=== PATIENT | female | born 1995 | race Caucasian/White ===

== ENCOUNTER → 2016-11-01 | Outpatient (CLI) | payer MEDICAID ==
[~2016-11-01] MED LIST: IBP800T PO
--- OUTSIDE RECORDS SUMMARY | 2016-11-01 16:24 | XMS REPORT | Continuity of Care Document ---
Author Author Interface Organization Interface Address Unknown Phone Unavailable Problems Problem Status Onset Date Classification Date Reported Comments Source No data available for this section Problem 03/02/2015 [place]. state, incidental 02/26/2015 Diagnosis 2014 [facility] Medications Medication Details Route Status Patient Instructions Ordering Provider Order Date Source No Known Medications No known medications Active [facility] Allergies, Adverse Reactions, Alerts Substance Category Reaction Severity Reaction type Status Date Reported Comments Source Immunizations Immunization Date Given Site Status Last Updated Comments Source No data available for this section No data available for this section [place]. Results Order Name Results Value Reference Range Date Interpretation Comments Source Vital Signs Vital Sign Value Date Comments Source Encounters Location Location Details Encounter Type Encounter Number Reason For Visit Attending Provider ADM Date DC Date Status Source [facility] [id number] Clinic ( Outpatient) [id number] [place] 02/26/2015 Active [facility] [id number] [place] 02/26/2015 02/27/2015 [place] Procedures Procedure Code Date Perfomer Comments Source No data available for this section [facility]
--- NOTE | 2016-11-01 18:44 | Diagnostic Imaging Report ---
INDICATION: Ultrasound for dates. FINDINGS: There is a single live intrauterine fetus. [place]-rump length is 5.3 cm consistent with 12 week 0 day gestation. heart rate of 149 beats per minute. Placenta appears to be developing fundally and posteriorly. No evidence of subchorionic hemorrhage. IMPRESSION: 12 week 0 day live intrauterine with sonographic EDC of 05/16/2017. Dictated by: Dictated on workstation # [id number]
== END ==
LOC: RAD 16:20
PROVIDERS: ATTEND Family Medicine
DX: Z34.81 Encounter for supervision of other normal pregnancy, first trimester (principal)
CPT/HCPCS: 76801

== ENCOUNTER → 2016-12-28 | Outpatient (CLI) | payer MEDICAID ==
--- OUTSIDE RECORDS SUMMARY | 2016-12-28 11:15 | XMS REPORT | Continuity of Care Document ---
Author Author Zaida Cerda Address Unknown Phone Unavailable Care Team Providers Care Senior Communications Specialist Name Role Phone [employer] Unavailable Unavailable Problems Problem Status Onset Date Classification Date Reported Comments Source state, incidental 02/26/2015 Diagnosis 2014 [facility] No data available for this section Problem 03/02/2015 [employer]. Medications Medication Details Route Status Patient Instructions Ordering Provider Order Date Source No Known Medications No known medications Active [employer]. Allergies, Adverse Reactions, Alerts Immunizations Immunization Date Given Site Status Last Updated Comments Source No data available for this section No data available for this section [employer]. Results Vital Signs Encounters Location Location Details Encounter Type Encounter Number Reason For Visit Attending Provider ADM Date DC Date Status Source [facility] [id number] [employer] 02/26/2015 02/27/2015 [facility] Procedures Procedure Code Date Perfomer Comments Source No data available for this section [employer]. Plan of Care Social History Assessment and Plan Family History Value Date Source Advance Directives Order Name Results Value Date Source
--- NOTE | 2016-12-28 12:39 | Diagnostic Imaging Report ---
INDICATION: Anatomical survey. COMPARISON: 11/01/2016. DISCUSSION: Transabdominal sonographic evaluation of the gravid uterus was performed. The cervix measures 4.7 cm. Single live intrauterine at 20 weeks 1 day by sonographic measurements. Appropriate interval growth. EDC by the first ultrasound is 05/16/2017. presentation varied throughout the exam. Normal amniotic fluid index. Grade 2 placenta is located posteriorly with no placenta previa. heart rate measures 155 beats per minute. There is good visualization of the kidneys, bladder, stomach, brain, four-chamber heart, three-vessel cord and insertion, spine, and extremities. Biparietal diameter measures 4.6 cm. Head circumference measures 17.3 cm. Abdominal circumference measures 15.2 cm. Femur length measures 3.3 cm. Estimated weight is 342 g. IMPRESSION: 1. Single live intrauterine at 20 weeks 1 day by sonographic measurements. Normal anatomical survey. Dictated by: Dictated on workstation # [id number]
== END ==
LOC: RAD 11:11
PROVIDERS: ATTEND Family Medicine
DX: Z34.82 Encounter for supervision of other normal pregnancy, second trimester (principal)
CPT/HCPCS: 76805

== ENCOUNTER 2017-05-04 14:00 | Inpatient (IN) | payer MEDICAID ==
[~2017-05-04] VITALS: Ht 170.2 cm; Wt 85.3 kg
[2017-05-04] VITALS (38 sets, daily range): BP systolic 90–134; BP diastolic 51–75
[2017-05-04] MEDS ORDERED: PREN1TAB86 PO (14:53)
[2017-05-04 14:54] LABS: BILIRUBIN,URINE NEGATIVE (NEGATIVE); KETONES,URINE NEGATIVE (NEGATIVE); LEUKOCYTE ESTERASE ,URINE 3+ (NEGATIVE); NITRITE,URINE NEGATIVE (NEGATIVE); PH,URINE 6 (5-9); PROTEIN,URINE 2+ (NEGATIVE); UROBILINOGEN,URINE 1 MG/DL (NORMAL)
[2017-05-04] MEDS ORDERED: D5 LR IV SOLUTION 1,000 ML IV ONE (15:03)
[2017-05-04] MEDS ORDERED: MINERAL OIL CONCENTRATE 99.9% 15 ML UDC TOP PRN (15:15)
[2017-05-04] MEDS: D5 LR IV SOLUTION 1,000 ML IV SCH ×2 (15:20→22:52)
[2017-05-04 15:27] LABS: WBC,URINE 25-50 /HPF
[2017-05-04 15:28] LABS: TRICHOMONAS,URINE FEW /HPF
[2017-05-04 15:38] LABS: BASOPHILS % (AUTO) 0 % (0-10); EOSINOPHILS # (AUTO) 0.1 10^3/uL (0.0-0.3); EOSINOPHILS % (AUTO) 1 % (0-10); LYMPHOCYTES # (AUTO) 2.3 X 10^3 (1.0-4.0); LYMPHOCYTES % (AUTO) 20 % (12-44); MEAN CORPUSCULAR HEMOGLOBIN 30 PG (25-34); MEAN CORPUSCULAR HGB CONC 33 G/DL (32-36); MEAN CORPUSCULAR VOLUME 89 FL (80-99); MONOCYTES % (AUTO) 8 % (0-12); NEUTROPHILS # (AUTO) 8.6 X 10^3 (1.8-7.8); NEUTROPHILS % (AUTO) 72 % (42-75); PLATELET COUNT 236 10^3/uL (130-400); RED CELL DISTRIBUTION WIDTH 14.1 % (10.0-14.5)
[2017-05-04] MEDS ORDERED: metroNIDAZOLE 500 MG (FLAGYL) TAB PO NR (16:40)
[2017-05-04] MEDS ORDERED: SUFENTA 0.6MCG/ML BUPIVA 0.125 100 ML ONE (19:10)
[2017-05-04] MEDS ORDERED: BUPIVACAINE 0.25% 30 ML (SENSORCAINE) VIAL ONE (19:35)
[2017-05-04] MEDS: EPIDURAL (SUFENTA 0.6MCG/ML BUPIVA 0.125%) 100 ML BAG EPI SCH (19:55)
[2017-05-04] MEDS ORDERED: LACTATED RINGERS 1,000 ML IV ONE (20:00)
[2017-05-04] MEDS ORDERED: ONDANSETRON 4 MG/2 ML (SDV) Z0FRAN IV PRN (20:00)
[2017-05-04] MEDS ORDERED: NALOXONE 0.4 MG/ML 1 ML (NARCAN) VIAL IV PRN (20:00)
[2017-05-04] MEDS: CATHETER FLUSH 10 ML SYR IV SCH (22:00)
[2017-05-05] VITALS (67 sets, daily range): BP systolic 91–127; BP diastolic 6–70
[2017-05-05] MEDS: ACETAMINOPHEN 500 MG TAB (TYLENOL) PO PRN ×2 (04:12→14:55)
[2017-05-05] MEDS ORDERED: OXYTOCIN/NORMAL SALINE 500 ML IV ONE ×2 (05:16→14:19)
[2017-05-05] MEDS: EPIDURAL (SUFENTA 0.6MCG/ML BUPIVA 0.125%) 100 ML BAG EPI SCH (05:34)
[2017-05-05] MEDS: CATHETER FLUSH 10 ML SYR IV SCH (06:00)
[2017-05-05] MEDS: D5 LR IV SOLUTION 1,000 ML IV SCH (07:01)
--- NOTE | 2017-05-05 08:15 | History & Physical-OB ---
OB - Chief Complaint & HPI Date/Time Date of Admission: Date of Admission: May 04, 2017 at 3:14 pm Time Seen by Provider: 08:10 Chief Complaint/History OB-Reason for Admission/Chief: Onset of Labor Hx : 2 Hx Para: 1 Expected Date of Delivery: May 15, 2017 Gestational Age in Weeks: 38 Gestational Age in Days: 4 Admission Nurse Assessment Rev: Yes History of Labs O+, antibody neg, RI, HIV/HepB/RPR NR. GC neg. Chlamydia positive and treated twice, ANCA negative. Trichomonas in urine at admission. GBS neg. Allergies and Home Medications Allergies Coded Allergies: No Known Drug Allergies (Unverified , 10/27/12) Home Medications Vit W-Ca,Fe,FA(<1 mg) 1 Each Tablet, 1 EACH PO DAILY, (Reported) OB - History Hx of Present Care: Yes Ultrasounds: Normal mid trimester US Obstetrical Complications: Other (chlamydia) Medical Complications: None Obstetrical History Hx : 2 Hx Para: 1 Hx # Term Pregnancies: 1 Hx # Pregnancies: 0 Number of Living Children: 1 Hx Termination: No Hx Multiple Gestation: No Hx Ectopic : No Hx Stillbirth: No Hx Complication: No Hx Induced Hypertens: Yes Hx Maternal Gestational Diabet: No Hx Hemorrhage: No Delivery History Hx Dystocia: No Hx Forceps Assisted Delivery: No Hx Vacuum Extraction Assisted: No Hx Placenta Abnormality: No Hx Distress: No Hx Large For Gestational Age I: No Hx Small for Gestational Age I: No Hx Section: No Hx Vaginal Delivery Post C-Sec: No Hx Blood Disorders: No Adverse Rxn to Tranfusion: No Patient Past Medical History PMHx: None Social History/Family History HIV/AIDS: No Recent Infectious Disease Expo: No Sexually Transmitted Disease: Yes Alcohol Use: Denies Use Recreational Drug Use: No (urine positive for THC at intake visit) Smoking Cessation: Current every day smoker Immunizations Hepatitis A: Yes Hepatitis B: Yes Rubella: immune RPR/VDRL: Negative GBS Status: Negative HBsAG: Negative OB - Admission Exam Physical Exam Date Seen by Provider: May 05, 2017 Time Seen by Provider: 08:16 Vitals: Vital Signs 05/05/17 05/05/17 05:45 07:00 Temp 97.1 Pulse 73 Resp 18 B/P (MAP) 106/58 Pulse Ox 98 O2 Delivery Room Air HEENT: NCAT Abdomen: Non tender Extremities: Normal Cervical Dilatation: 7cm Effacement: 75% Station: -3 Membranes: Intact Heart Rate: 140's Decelerations: No Decelerations Fdc Variability: Average (6-25) Labs Laboratory Tests Test 05/04/17 14:17 05/04/17 15:20 Range/Units Urine Color YELLOW Urine Clarity CLEAR Urine pH 6 5-9 Urine Specific [place] 1.020 1.016-1.022 Urine Protein 2+ H NEGATIVE Urine Glucose (UA) NEGATIVE NEGATIVE Urine Ketones NEGATIVE NEGATIVE Urine Nitrite NEGATIVE NEGATIVE Urine Bilirubin NEGATIVE NEGATIVE Urine Urobilinogen 1 NORMAL MG/DL Urine Leukocyte Esterase 3+ H NEGATIVE Urine RBC (Auto) 1+ H NEGATIVE Urine RBC 2-5 H /HPF Urine WBC 25-50 H /HPF Urine Squamous Epithelial Cells 10-25 H /HPF Urine Crystals NONE /LPF Urine Bacteria FEW H /HPF Urine Casts NONE /LPF Urine Mucus MODERATE H /LPF Urine Trichomonas FEW H /HPF Urine Culture Indicated YES Urine Opiates Screen NEGATIVE NEGATIVE Urine Oxycodone Screen NEGATIVE NEGATIVE Urine Methadone Screen NEGATIVE NEGATIVE Urine Propoxyphene Screen NEGATIVE NEGATIVE Urine Barbiturates Screen NEGATIVE NEGATIVE Ur Tricyclic Antidepressants Screen NEGATIVE NEGATIVE Urine Phencyclidine Screen NEGATIVE NEGATIVE Urine Amphetamines Screen NEGATIVE NEGATIVE Urine Methamphetamines Screen NEGATIVE NEGATIVE Urine Benzodiazepines Screen NEGATIVE NEGATIVE Urine Cocaine Screen NEGATIVE NEGATIVE Urine Cannabinoids Screen NEGATIVE NEGATIVE White Blood Count 12.0 H 4.3-11.0 10^3/uL Red Blood Count 3.90 L 4.35-5.85 10^6/uL Hemoglobin 11.5 11.5-16.0 G/DL Hematocrit 35 35-52 % Mean Corpuscular Volume 89 80-99 FL Mean Corpuscular Hemoglobin 30 25-34 PG Mean Corpuscular Hemoglobin Concent 33 32-36 G/DL Red Cell Distribution Width 14.1 10.0-14.5 % Platelet Count 236 130-400 10^3/uL Mean Platelet Volume 11.0 H 7.4-10.4 FL Neutrophils (%) (Auto) 72 42-75 % Lymphocytes (%) (Auto) 20 12-44 % Monocytes (%) (Auto) 8 0-12 % Eosinophils (%) (Auto) 1 0-10 % Basophils (%) (Auto) 0 0-10 % Neutrophils # (Auto) 8.6 H 1.8-7.8 X 10^3 Lymphocytes # (Auto) 2.3 1.0-4.0 X 10^3 Monocytes # (Auto) 1.0 0.0-1.0 X 10^3 Eosinophils # (Auto) 0.1 0.0-0.3 10^3/uL Basophils # (Auto) 0.0 0.0-0.1 10^3/uL OB - Assessment/Plan/Diagnosis Assessment Assessment: active labor, other (trichomoniasis) Plan Plan: Expectant Management Copy Copies To 1: MARICARMEN MEYERS MD, BETHANY N MD May 05, 2017 8:15 am
--- NOTE | 2017-05-05 14:37 | OB Labor & Delivery Record ---
Vag Delivery Note Vag Delivery Note Date of Delivery: 05/05/17 Preoperative Diagnosis: Renetta Lara is a (21 /Para 2 / 1, Gestational Age (wks)38with 4 days Postoperative Diagnosis: Same Surgeon: MARICARMEN MEYERS Supervisor [employer]: Peggy Hand, MS3 Anesthesia: Epidural Delivery Type: spontaneous vaginal Findings: Viable female infant, apgars 4/8, weight 7#1 Lacerations: none Intact placenta with 3 vessel cord. Estimated Blood Loss: 250 ml Complications: Nuchal x 1 delivered through, mild shoulder dystocia relieved with suprapubic pressure Condition: Stable Description of Procedure: The patient is a G2 now P2 who presented at 38w3d with suspected active labor. She was admitted and informed consent was obtained. She was noted to have trichomonas in urine at admission, was treated with metronidazole. Her labor course was remarkable for arrhythmia. She progressed to complete dilatation and began to push. She was then set up for delivery. The infant's head was delivered atraumatically in the JUS position. Shoulder dystocia noted upon delivery which was not relieved with McRobert's position but was relieved with suprapubic pressure in less than one minute. Upon delivery, the infant was placed on maternal abdomen and the mouth and nares were bulb suctioned. The cord was doubly clamped and cut and the infant was handed off to the pediatric staff. An intact placenta with 3-vessel cord delivered via Marcus and there was found to be minimal bleeding.~ Vigorous fundal massage was performed and the fundus was found to be firm. IV oxytocin was given. Examination of the vagina and perineum revealed no lacerations. Sponge, instrument and needle counts were correct. Mom in stable condition in labor suite, transferred to nursery for further evaluation and monitoring. Vitals - Labs Vital Signs - I&O Vital Signs 05/05/17 05/05/17 10:08 11:45 Temp 96.6 Pulse 157 Resp 18 B/P (MAP) 117/54 Pulse Ox 94 O2 Delivery Room Air Labs Laboratory Tests 05/04/17 15:20: White Blood Count 12.0H, Red Blood Count 3.90L, Hemoglobin 11.5, Hematocrit 35, Mean Corpuscular Volume 89, Mean Corpuscular Hemoglobin 30, Mean Corpuscular Hemoglobin Concent 33, Red Cell Distribution Width 14.1, Platelet Count 236, Mean Platelet Volume 11.0H, Neutrophils (%) (Auto) 72, Lymphocytes (%) (Auto) 20 , Monocytes (%) (Auto) 8, Eosinophils (%) (Auto) 1, Basophils (%) (Auto) 0, Neutrophils # (Auto) 8.6H, Lymphocytes # (Auto) 2.3, Monocytes # (Auto) 1.0, Eosinophils # (Auto) 0.1, Basophils # (Auto) 0.0 Shoulder Dystocia Note Shoulder Dystocia Start Time of Delivery of HEAD: 13:39 Time shoulder dystocia called: 13:39 HOB in lowered position: Yes Time of delivery of BODY: 13:40 Positional Maneuvers Mone, Suprapubic: Left MARICARMEN MEYERS MD May 05, 2017 2:37 pm
[2017-05-05] MEDS ORDERED: OXYTOCIN/NORMAL SALINE 500 ML IV SCH (14:52)
[2017-05-05] MEDS ORDERED: TETANUS,DIPTH,PERTUSS P/F (BOOSTRIX) 0.5 ML VIAL IM ONE (15:00)
[2017-05-05] MEDS ORDERED: WITCH HAZEL(TUCKS) 40 EA JAR TOP PRN (15:00)
[2017-05-05] MEDS ORDERED: MEASLES,MUMPS,RUBELLA 1 EA INJ SQ ONE (15:00)
[2017-05-05] MEDS ORDERED: BENZOCAINE/MENTHOL (DERMOPLAST) 56 ML CAN TP PRN (15:00)
[2017-05-05] MEDS: IBUPROFEN 600 MG (MOTRIN) TAB PO SCH ×2 (17:13→22:53)
[2017-05-05] MEDS ORDERED: NICOTINE 21 MG (NICODERM) PATCH TD SCH (17:23)
[2017-05-05] MEDS ORDERED: CATHETER FLUSH 10 ML SYR IV SCH (22:00)
[2017-05-06] MEDS ORDERED: ACETAMINOPHEN 500 MG TAB (TYLENOL) PO PRN
[2017-05-06 05:15] VITALS: BP 99/66
[2017-05-06] MEDS: IBUPROFEN 600 MG (MOTRIN) TAB PO SCH (05:15)
[2017-05-06 06:42] LABS: BASOPHILS % (AUTO) 0 % (0-10); EOSINOPHILS # (AUTO) 0.1 10^3/uL (0.0-0.3); EOSINOPHILS % (AUTO) 1 % (0-10); LYMPHOCYTES % (AUTO) 20 % (12-44); MEAN CORPUSCULAR HEMOGLOBIN 30 PG (25-34); MEAN CORPUSCULAR HGB CONC 33 G/DL (32-36); MEAN CORPUSCULAR VOLUME 91 FL (80-99); MEAN PLATELET VOLUME 11.2 FL (7.4-10.4); MONOCYTES # (AUTO) 0.8 X 10^3 (0.0-1.0); MONOCYTES % (AUTO) 8 % (0-12); NEUTROPHILS % (AUTO) 71 % (42-75); PLATELET COUNT 184 10^3/uL (130-400); RED BLOOD COUNT 3.47 10^6/uL (4.35-5.85); RED CELL DISTRIBUTION WIDTH 14.2 % (10.0-14.5); WHITE BLOOD COUNT 9.9 10^3/uL (4.3-11.0)
[2017-05-06] MEDS ORDERED: PRENATAL VITAMIN 1 EA TAB PO SCH (07:00)
[2017-05-06] MEDS ORDERED: IBUP-1773 PO (08:36)
--- NOTE | 2017-05-06 08:38 | Discharge Instructions ---
Discharge Inst-Women's Serv Depart Medications New, Converted or Re-Newed RX: Transmitted to Pharmacy New Medications: Ibuprofen (Ibuprofen) 600 Mg Tablet 600 MG PO Q6H PRN for PAIN-MODERATE, #60 TAB 0 Refills Continued Medications: Vit W-Ca,Fe,FA(<1 mg) ( Vitamins) 1 Each Tablet 1 EACH PO DAILY, TAB Follow Up/Instructions Goal/Follow Up: Follow up with Dr. Marley in 6 weeks for visit. Activity Activity: Activity as Tolerated (avoid strenuous activity x 6 weeks.) Driving Instructions: You May Drive NO SMOKING: NO SMOKING Nothing Inside Vagina: No Douching, No [place], No Tampons Diet Discharge Diet: No Restrictions Symptoms to Report to : Swelling Increased, Bleeding Excessive, Pain Increased, Fever Over 101 Degrees F, Pain/Pressure in Chest, Cramps in Feet or Legs, Vaginal Discharge Foul, Dizziness/Fainting, Shortness of Breath For Any Problems or Questions: Contact Your Physician Copies To 1: MARICARMEN MARLEY MD, BETHANY N MD May 06, 2017 8:38 am
[2017-05-06] MEDS ORDERED: NICOTINE PATCH REMOVAL TP SCH (08:59)
--- NOTE | 2017-05-06 09:06 | Discharge Summary ---
Diagnosis/Chief Complaint Date of Admission May 04, 2017 at 3:14 pm Date of Discharge May 06, 2017 Admission Diagnosis Admission Diagnosis Term intrauterine at 38 weeks Active labor Trichomoniasis Blood type O+ RI GBS neg Discharge Diagnosis S/P spontaneous vaginal delivery with mild shoulder dystocia and no lacerations Asymptomatic anemia Blood type O+ RI Trichomonas, treated Chief Complaint/HPI Chief Complaint/HPI G2 now P2 presented to L&D in active labor and was found to have trichomonas in urine, treated shortly after arrival. Discharge Summary-Simple/Stand Procedures Spontaneous vaginal delivery Discharge Physical Examination Allergies: Coded Allergies: No Known Drug Allergies (Unverified , 10/27/12) Vitals & I&Os Vital Sign - Last 12Hours Date Time Temp Pulse Resp B/P (MAP) Pulse Ox O2 Delivery O2 Flow Rate FiO2 05/06/17 05:15 97.9 75 17 99/66 98 Room Air Intake and Output 05/06/17 00:00 Intake Total 1000 ml Balance 1000 ml General Appearance: Alert, No Acute Distress Respiratory: Clear to Auscultation, Normal Air Movement Cardiovascular: Regular Rate, No Murmurs Abdominal: Normal Bowel Sounds, Other (fundus firm at umbilicus) Psych/Mental Status: Mental Status NL, Mood NL Hospital Course See final discharge diagnosis. Labs Laboratory Tests Test 05/04/17 14:17 05/04/17 15:20 05/06/17 06:19 Range/Units Urine Color YELLOW Urine Clarity CLEAR Urine pH 6 5-9 Urine Specific [place] 1.020 1.016-1.022 Urine Protein 2+ H NEGATIVE Urine Glucose (UA) NEGATIVE NEGATIVE Urine Ketones NEGATIVE NEGATIVE Urine Nitrite NEGATIVE NEGATIVE Urine Bilirubin NEGATIVE NEGATIVE Urine Urobilinogen 1 NORMAL MG/DL Urine Leukocyte Esterase 3+ H NEGATIVE Urine RBC (Auto) 1+ H NEGATIVE Urine RBC 2-5 H /HPF Urine WBC 25-50 H /HPF Urine Squamous Epithelial Cells 10-25 H /HPF Urine Crystals NONE /LPF Urine Bacteria FEW H /HPF Urine Casts NONE /LPF Urine Mucus MODERATE H /LPF Urine Trichomonas FEW H /HPF Urine Culture Indicated YES Urine Opiates Screen NEGATIVE NEGATIVE Urine Oxycodone Screen NEGATIVE NEGATIVE Urine Methadone Screen NEGATIVE NEGATIVE Urine Propoxyphene Screen NEGATIVE NEGATIVE Urine Barbiturates Screen NEGATIVE NEGATIVE Ur Tricyclic Antidepressants Screen NEGATIVE NEGATIVE Urine Phencyclidine Screen NEGATIVE NEGATIVE Urine Amphetamines Screen NEGATIVE NEGATIVE Urine Methamphetamines Screen NEGATIVE NEGATIVE Urine Benzodiazepines Screen NEGATIVE NEGATIVE Urine Cocaine Screen NEGATIVE NEGATIVE Urine Cannabinoids Screen NEGATIVE NEGATIVE White Blood Count 12.0 H 9.9 4.3-11.0 10^3/uL Red Blood Count 3.90 L 3.47 L 4.35-5.85 10^6/uL Hemoglobin 11.5 10.3 L 11.5-16.0 G/DL Hematocrit 35 32 L 35-52 % Mean Corpuscular Volume 89 91 80-99 FL Mean Corpuscular Hemoglobin 30 30 25-34 PG Mean Corpuscular Hemoglobin Concent 33 33 32-36 G/DL Red Cell Distribution Width 14.1 14.2 10.0-14.5 % Platelet Count 236 184 130-400 10^3/uL Mean Platelet Volume 11.0 H 11.2 H 7.4-10.4 FL Neutrophils (%) (Auto) 72 71 42-75 % Lymphocytes (%) (Auto) 20 20 12-44 % Monocytes (%) (Auto) 8 8 0-12 % Eosinophils (%) (Auto) 1 1 0-10 % Basophils (%) (Auto) 0 0 0-10 % Neutrophils # (Auto) 8.6 H 7.0 1.8-7.8 X 10^3 Lymphocytes # (Auto) 2.3 2.0 1.0-4.0 X 10^3 Monocytes # (Auto) 1.0 0.8 0.0-1.0 X 10^3 Eosinophils # (Auto) 0.1 0.1 0.0-0.3 10^3/uL Basophils # (Auto) 0.0 0.0 0.0-0.1 10^3/uL Discharge Instructions to patient/family Please see [employer] discharge instructions given to patient. Discharge Medications Reviewed and agree with Discharge Medication list on patient's Discharge Instruction sheet Clinical Quality Measures DVT/VTE Risk/Contraindication: Risk Factor Score Per Nursin RFS Level Per Nursing on Admit: 2=Moderate Copy Copies To 1: MARICARMEN MEYERS MD, BETHANY N MD May 06, 2017 9:06 am
[2017-05-06 09:15] VITALS: BP 110/70
--- NOTE | 2017-05-06 12:54 | Anesthesia-Regional Post-Op ---
Regional Patient Condition Mental Status: Alert, Oriented x3 Circulation: Same as Pre-Op Headache: Absent Sensation: Full Recovery Motor Block: Absent Post Op Complications Complications None Follow Up Care/Instructions Patient Instructions None needed. Anesthesia/Patient Condition Patient is doing well, no complaints, stable vital signs, no apparent adverse anesthesia problems. No complications reported per nursing. D/C home per [facility] Criteria: No JEIMY MIJARES CRNA May 06, 2017 12:54
== END 2017-05-06 10:18 | disposition home or self-care (01) | DRG 774 ==
LOC: LDRP 14:00 → WSo 14:00 → LDRP 15:14 → ENPENDDIS 05-06 09:00
PROVIDERS: ADMIT Family Medicine; ATTEND Family Medicine
PROC: 10E0XZZ Delivery of Products of Conception, External Approach (ICD-10-PCS; principal; 2017-05-05)
DX: O98.32 Other infections with a predominantly sexual mode of transmission complicating childbirth (principal); A59.00 Urogenital trichomoniasis, unspecified; O66.0 Obstructed labor due to shoulder dystocia; O69.81X0 Labor and delivery complicated by cord around neck, without compression, not applicable or unspecified; O99.324 Drug use complicating childbirth; F12.10 Cannabis abuse, uncomplicated; Z37.0 Single live birth; Z3A.38 38 weeks gestation of pregnancy
CPT/HCPCS: 36415; 80306; 81000; 85025; 86850; 86900; 86901; 87088; 99212